=== PATIENT | female | born 1955 | race Caucasian/White ===

== ENCOUNTER 2023-07-08 10:48 | Day surgery (SDC) | payer MEDICARE, BC ==
[2023-07-08] MEDS ORDERED: Depo-Medrol 40 MG/ML IM ONE (10:49)
[2023-07-08] MEDS ORDERED: XYLOCAINE-MPF 1% 5ML SDV IJ ONE (10:49)
[2023-07-08] MEDS ORDERED: Decadron 4 MG INJ IV ONE (10:49)
[2023-07-08] MEDS ORDERED: Sodium Chloride 0.9(Preservative Free) 10 ML IJ ONE (10:49)
[2023-07-08] MEDS ORDERED: Versed 2 MG/2 ML Injection ONE (11:58)
[2023-07-08] MEDS ORDERED: DIPRIVAN 200 MG/20 ML IV ONE ×2 (11:58→12:15)
--- NOTE | 2023-07-08 13:08 | XRAY ---
Indication: Lumbar MEAGHAN. Intraoperative fluoroscopy provided for 32 seconds. Single lateral digital spot image submitted for interpretation demonstrates posterior needle tip projecting posterior to lumbosacral junction. Small amount of contrast injected for needle tip placement. Correlate with intraoperative findings/report.
--- NOTE | 2023-07-08 13:08 | XRAY ---
Indication: Bilateral piriformis injection. Intraoperative fluoroscopy provided for 34 seconds. 2 digital spot image submitted for interpretation demonstrates posterior needle tip projecting over the left and right piriformis. Small amount of contrast injected for both needle tip placement. Correlate with intraoperative findings/report.
[2023-07-08] MEDS ORDERED: Lactated Ringers 1,000 ML IV ONE (14:33)
--- NOTE | 2023-07-08 15:06 | XRAY ---
34 seconds of fluoroscopy was used in surgery for a bilateral piriformis injection.
--- NOTE | 2023-07-08 15:06 | XRAY ---
32 seconds of fluoroscopy was used in surgery for a lumbar MEAGHAN.
== END 2023-07-08 12:48 | disposition home or self-care (01) ==
LOC: SDC-PAIN 10:48
PROVIDERS: ATTEND Psychiatry & Neurology Pain Medicine
DX: M54.16 Radiculopathy, lumbar region (principal); M79.18 Myalgia, other site; Z79.899 Other long term (current) drug therapy
CPT/HCPCS: 20552; 62323; 72100; 72170; 77002; 77003; J1030; J1100; J2250; J2704; Q9966

== ENCOUNTER 2023-11-05 09:57 | Day surgery (SDC) | payer MEDICARE, BC ==
[2023-11-05] MEDS: Sodium Chloride 0.9% 1000 ML 1,000 ML IV SCH (10:40)
[2023-11-05 11:09] VITALS: RESP 18; TEMP 98.1
[2023-11-05 11:37] LABS: ANION GAP 10.4 MEQ/L (5-15); Calcium 9.1 mg/dL (8.4-10.2); Creatinine 1 0.58 mg/dL (0.52-1.04); EST GLOMERULAR FILTRATION RATE 97.9 ML/MIN; Potassium 3.8 mmol/L (3.5-5.1)
[2023-11-05] MEDS ORDERED: Xylocaine-Mpf 2% 5 Ml Vial ONE (12:08)
[2023-11-05] MEDS ORDERED: DIPRIVAN 200 MG/20 ML IV ONE (12:08)
[2023-11-05 13:14] VITALS: BP 114/74; PULSE 76; O2SAT 97
--- NOTE | 2023-11-05 15:17 | OP ---
SURGERY DATE/TIME: 11/05/2023 1213 PREOPERATIVE DIAGNOSIS: History of gastric erosions and abdominal pain currently. POSTOPERATIVE DIAGNOSES: Healed gastric erosions just minimal gastritis. PROCEDURE: EGD with biopsy. SURGEON: Emanuel Camacho M.D. ANESTHESIA: IV anesthesia. HISTORY: The patient is a 68-year-old female with intermittent abdominal pain that is quite bothersome in the upper abdomen. She also is having back and neck pain. She does have EGD history of gastritis with erosion. She is compliant with her proton pump inhibitor. They want to proceed with endoscopy to further evaluate. Her colonoscopy is up-to-date. FINDINGS: Healed erosions, very minimal gastritis. Biopsy taken to rule out Helicobacter pylori. DESCRIPTION OF PROCEDURE: The patient was brought to the endoscopy suite, routinely positioned and prepared. Time out performed. IV anesthesia induced by anesthesia. The gastroscope was inserted and advanced to the third portion of duodenum. The duodenum is normal in appearance. Stomach has just a very minimal erythema. All the prior erosion sites are healed up. Biopsy is taken of the antrum to rule out Helicobacter pylori. The esophagus is normal. The stomach is suctioned out. Scope is withdrawn. The patient tolerated the procedure as well as could be expected. Prior to the procedure she was drying out in pain due to her chronic back pain which she has seen pain management already for that.
== END 2023-11-05 13:30 | disposition home or self-care (01) ==
LOC: SDC 09:57
PROVIDERS: ATTEND Surgery
DX: K29.70 Gastritis, unspecified, without bleeding (principal); Z87.19 Personal history of other diseases of the digestive system; R10.9 Unspecified abdominal pain; I10 Essential (primary) hypertension
CPT/HCPCS: 36415; 80048; 93005; J2704

== ENCOUNTER 2023-11-18 08:56 | Day surgery (SDC) | payer MEDICARE, BC ==
[2023-11-18] MEDS ORDERED: Depo-Medrol 40 MG/ML IM ONE (08:57)
[2023-11-18] MEDS ORDERED: LIDOCAINE HCL 2% 100 MG/5 ML IJ ONE (08:57)
[2023-11-18] MEDS ORDERED: BUPIVACAINE 0.5% VIAL IJ ONE (08:57)
[2023-11-18] MEDS ORDERED: Versed 2 MG/2 ML Injection ONE (10:39)
[2023-11-18] MEDS ORDERED: Lactated Ringers 1,000 ML IV ONE (11:13)
[2023-11-18] MEDS ORDERED: DIPRIVAN 200 MG/20 ML IV ONE (11:22)
--- NOTE | 2023-11-18 12:07 | XRAY ---
Indication: Bilateral L4-S1 MBB. Intraoperative fluoroscopy provided for 11 seconds. Single digital spot image submitted for interpretation demonstrates posterior needle tips projecting over expected left and right L4-S1 nerve roots. Correlate with intraoperative findings/report.
--- NOTE | 2023-11-18 12:09 | XRAY ---
11 seconds of fluoroscopy was used in surgery for a bilateral L4-S1 MBB.
== END 2023-11-18 12:01 | disposition home or self-care (01) ==
LOC: SDC-PAIN 08:56
PROVIDERS: ATTEND Psychiatry & Neurology Pain Medicine
DX: M47.816 Spondylosis without myelopathy or radiculopathy, lumbar region (principal)
CPT/HCPCS: 64493; 64494; 72020; 77002; J1030; J2250; J2704